=== PATIENT | female | born 1960 | race Caucasian/White ===

== ENCOUNTER 2019-02-02 06:00 | Day surgery (SDC) | payer MEDICAID ==
[~2019-02-02] VITALS: Ht 165.1 cm; Wt 65.9 kg
[~2019-02-02 06:00] MED LIST: LISI-660 PO; MONT10TA21 PO; SODIUM CHLORIDE 0.9% 1,000 ML IV ONE
[2019-02-02] MEDS ORDERED: ALBUTEROL SULFATE 2.5 MG/0.5 ML NEB SOLUTION NEB ONE (06:01)
[2019-02-02] MEDS ORDERED: LIDOCAINE 2% 11 ML JELLY TP ONE (06:01)
[2019-02-02] MEDS ORDERED: LIDOCAINE 4% 50 ML SOLUTION TP ONE (06:01)
[2019-02-02] MEDS ORDERED: BENZOCAINE 20% 50 MCG/SPRAY 57 GM TP ONE (06:01)
[2019-02-02] MEDS ORDERED: SODIUM CHLORIDE 0.9% 1,000 ML IV ONE (06:30)
[2019-02-02] MEDS ORDERED: BUDE10.2 IH (06:58)
[2019-02-02] MEDS ORDERED: FentaNYL CITRATE-PF 100 MCG/2 ML VIAL ONE (07:25)
[2019-02-02] MEDS ORDERED: MIDAZOLAM HCL 2 MG/2 ML VIAL ONE (07:25)
[2019-02-02] MEDS ORDERED: OXYGEN THERAPY IH SCH (08:00)
[2019-02-02] MEDS ORDERED: MethylPREDNISolone SOD SUCC 125 MG/2 ML VIAL IVP ONE (08:00)
[2019-02-02] MEDS ORDERED: MethylPREDNISolone SOD SUCC 125 MG/2 ML VIAL ONE (08:07)
== END 2019-02-02 09:40 | disposition home or self-care (01) ==
LOC: SURGERY 06:00
PROVIDERS: ATTEND Internal Medicine Critical Care Medicine
DX: J38.4 Edema of larynx (principal); B37.0 Candidal stomatitis; Z98.890 Other specified postprocedural states; Z79.899 Other long term (current) drug therapy
CPT/HCPCS: 31623; 31624; 71045; 87015; 87070; 87101; 87205; 87206; 87220; 88108; 88312; J2250; J2930; J3010; J7030